=== PATIENT | female | born 1995 | race African-American/Black ===

== ENCOUNTER 2022-11-10 07:06 | Inpatient (IN) | payer MEDICAID ==
[2022-11-09] MEDS: MAGNESIUM/ALUMINUM HYDROXIDE/SIMETHICONE 30ML UDC PO SCH (21:00)
[~2022-11-10] VITALS: Ht 170.2 cm; Wt 86.2 kg
[2022-11-10] MEDS ORDERED: OXYTOCIN 10 UNITS/ML 1ML ONE (08:02)
[2022-11-10] MEDS ORDERED: LIDOCAINE HCL/PF 1% 10 MG/ML 5ML VIAL ONE (08:11)
[2022-11-10] MEDS ORDERED: BUTORPHANOL TARTRATE 2 MG/ML VIAL IM PRN (09:30)
[2022-11-10] MEDS ORDERED: RHO(D) IMMUNE GLOBULIN 300 MCG/SYR IM ONE (10:00)
[2022-11-10] MEDS ORDERED: BISACODYL 10MG SUPP PR PRN (10:00)
[2022-11-10] MEDS ORDERED: BENZOCAINE/LANOLIN/ALOE VERA SPRAY TOP PRN (10:00)
[2022-11-10] MEDS ORDERED: NALOXONE HCL 0.4MG/ML VIAL IV PRN (10:00)
[2022-11-10] MEDS ORDERED: IBUPROFEN 400MG TABLET PO PRN (10:00)
[2022-11-10] MEDS ORDERED: DIPHENHYDRAMINE 25MG CAPSULE PO PRN (10:00)
[2022-11-10] MEDS ORDERED: RHO(D) IMMUNE GLOBULIN 300 MCG/SYR IM PRN (10:00)
[2022-11-10] MEDS ORDERED: OXYTOCIN 30 UNITS/500ML NS PMX 500 ML IV SCH (10:00)
[2022-11-10] MEDS ORDERED: ACETAMINOPHEN WITH CODEINE 300/30MG TABLET PO PRN (10:00)
[2022-11-10] MEDS ORDERED: DEXT 5%/LACTATED RINGERS 1,000 ML IV SCH (10:00)
[2022-11-10] MEDS ORDERED: GLYCERIN/WITCH HAZEL LEAF MEDICATED PAD TOP PRN (10:00)
[2022-11-10] MEDS ORDERED: HEMORRHOIDAL SUPP PR PRN (10:00)
[2022-11-10] MEDS ORDERED: LANOLIN OINT 7GM TUBE TOP PRN (10:00)
[2022-11-10] MEDS ORDERED: LIDOCAINE HCL 1% 20ML VIAL (Pyxis) INJ INFIL SCH (10:00)
[2022-11-10 10:07] LABS: CLARITY URINE CLEAR (CLEAR); COLOR URINE YELLOW (YELLOW); KETONES URINE 2+ (NEGATIVE); LEUKOCYTE ESTERASE URINE NEGATIVE (NEGATIVE); NITRITE URINE NEGATIVE (NEGATIVE); OCCULT BLOOD URINE NEGATIVE (NEGATIVE); PROTEIN URINE 1+ (NEGATIVE); SPECIFIC GRAVITY URINE 1.023 (1.005-1.030); UROBILINOGEN URINE 0.2 E.U./dL (0.2-1.0)
[2022-11-10] MEDS ORDERED: DIATR MEGLU/DIATRIZOATE SOLN 30ML PO SCH (11:00)
[2022-11-10 12:07] LABS: *AMPHETAMINES SCREEN URINE NEGATIVE (NEGATIVE); *BARBITURATES SCREEN URINE NEGATIVE (NEGATIVE); *BENZODIAZEPINES SCREEN URINE NEGATIVE (NEGATIVE); *COCAINE SCREEN URINE NEGATIVE (NEGATIVE); METHADONE URINE SCREEN NEGATIVE (NEGATIVE); OPIATES URINE SCREEN NEGATIVE (NEGATIVE); PHENCYCLIDINE URINE SCREEN NEGATIVE (NEGATIVE)
[2022-11-10 12:22] LABS: CANNABINOID URINE SCREEN PRESUMTIVE POSITIVE (NEGATIVE)
[2022-11-10 12:40] VITALS: BP 130/76
[2022-11-10 16:00] VITALS: BP 127/74
[2022-11-10 16:55] LABS: PARTIAL THROMBOPLASTIN TIME 28.6 sec (23.4-31.0); PROTHROMBIN TIME 10.3 sec (9.6-11.0)
[2022-11-10 16:59] LABS: BASOPHILS % 0.3 % (0.0-2.0); HEMATOCRIT. 25.2 % (36.0-48.0); HEMOGLOBIN. 7.6 g/dL (12.0-16.0); LYMPHOCYTES % 8.6 % (20.0-50.0); MEAN CORPUSCULAR HEMOGLOBIN 19.8 pg (28.0-32.0); MEAN CORPUSCULAR VOLUME 65.8 fL (81.0-99.0); MEAN PLATELET VOLUME 10.7 fl (7.4-10.4); MONOCYTES % 7.8 % (2.0-8.0); NEUTROPHILS % 83.3 % (40.0-76.0); PLATELET 189 x1000/uL (130-400); RED BLOOD CELL COUNT 3.83 mill/uL (4.2-5.4); RED CELL DISTRIBUTION WIDTH 18.2 % (11.6-14.6)
[2022-11-10] MEDS ORDERED: CEFAZOLIN 2,000 MG in DEXT 5% WATER 100 ML IV NR (17:30)
[2022-11-10] MEDS: MAGNESIUM/ALUMINUM HYDROXIDE/SIMETHICONE 30ML UDC PO SCH (17:30)
[2022-11-10 17:46] LABS: PLATELET ESTIMATE NORMAL
[2022-11-10] MEDS: SIMETHICONE 80MG TABLET CHEW PO SCH ×2 (18:00→22:16)
[2022-11-10] MEDS ORDERED: GADOTERATE MEGLUMINE 5 MMOL/10 ML VIAL IV ONE (19:39)
[2022-11-10 20:00] VITALS: BP 128/73
[2022-11-10] MEDS: DOCUSATE SODIUM 100MG CAPSULE PO SCH (22:16)
[2022-11-10] MEDS: IBUPROFEN 800MG TABLET PO PRN (22:21)
[2022-11-11] MEDS ORDERED: CEFAZOLIN 1000MG PREMIX 50 ML IV SCH (01:00)
[2022-11-11 01:30] LABS: MEAN CORPUSCULAR HEMOGLOBIN 19.9 pg (28.0-32.0); MEAN CORPUSCULAR VOLUME 65.2 fL (81.0-99.0); PLATELET 148 x1000/uL (130-400); RED BLOOD CELL COUNT 2.98 mill/uL (4.2-5.4); RED CELL DISTRIBUTION WIDTH 18.4 % (11.6-14.6)
[2022-11-11 01:31] VITALS: BP 101/57
[2022-11-11 01:39] LABS: HEMATOCRIT 19.4 % (36.0-48.0); HEMOGLOBIN 5.9 g/dL (12.0-16.0)
[2022-11-11 05:42] VITALS: BP 119/73
[2022-11-11 07:30] VITALS: BP 112/69
[2022-11-11 07:46] LABS: BASOPHILS % 0.2 % (0.0-2.0); EOSINOPHILS % 0.1 % (0.0-5.0); HEMATOCRIT. 22.8 % (36.0-48.0); LYMPHOCYTES % 15.9 % (20.0-50.0); MEAN PLATELET VOLUME 10.4 fl (7.4-10.4); MONOCYTES % 9.2 % (2.0-8.0); NEUTROPHILS % 74.6 % (40.0-76.0); PLATELET 186 x1000/uL (130-400); RED BLOOD CELL COUNT 3.45 mill/uL (4.2-5.4); RED CELL DISTRIBUTION WIDTH 18.8 % (11.6-14.6)
[2022-11-11 07:50] LABS: HEMOGLOBIN. 6.9 g/dL (12.0-16.0)
[2022-11-11] MEDS: IBUPROFEN 800MG TABLET PO PRN ×2 (08:55→17:39)
[2022-11-11] MEDS: FERROUS SULFATE 325MG TABLET PO SCH ×3 (08:55→17:40)
[2022-11-11] MEDS: MAGNESIUM/ALUMINUM HYDROXIDE/SIMETHICONE 30ML UDC PO SCH ×4 (08:55→21:24)
[2022-11-11] MEDS: PRENATAL VIT/FE FUMARATE/FA TABLET PO SCH (08:55)
[2022-11-11] MEDS: SIMETHICONE 80MG TABLET CHEW PO SCH ×4 (08:55→21:24)
[2022-11-11 09:17] LABS: MEAN CORPUSCULAR HEMOGLOBIN 19.8 pg (28.0-32.0); MEAN CORPUSCULAR VOLUME 66.3 fL (81.0-99.0); PLATELET 166 x1000/uL (130-400); RED BLOOD CELL COUNT 3.03 mill/uL (4.2-5.4); RED CELL DISTRIBUTION WIDTH 18.6 % (11.6-14.6)
[2022-11-11 09:27] LABS: HEMATOCRIT 20.1 % (36.0-48.0)
[2022-11-11 16:00] VITALS: BP 125/70
[2022-11-11 20:00] VITALS: BP 111/68
[2022-11-11] MEDS: DOCUSATE SODIUM 100MG CAPSULE PO SCH (21:24)
[2022-11-12 04:00] VITALS: BP 116/71
[2022-11-12] MEDS: MAGNESIUM/ALUMINUM HYDROXIDE/SIMETHICONE 30ML UDC PO SCH (07:30)
[2022-11-12 08:00] VITALS: BP 117/63
[2022-11-12] MEDS: SIMETHICONE 80MG TABLET CHEW PO SCH (08:00)
[2022-11-12 09:07] LABS: HIV SCREEN 4G Non Reactive (Non Reactive)
[2022-11-12] MEDS: FERROUS SULFATE 325MG TABLET PO SCH (10:05)
[2022-11-12] MEDS: PRENATAL VIT/FE FUMARATE/FA TABLET PO SCH (10:05)
== END 2022-11-12 15:20 | disposition home or self-care (01) | DRG 560 ==
LOC: 8 EST LDRP 07:06 → OBSVTOIN 09:21 → 8EST 12:00
PROVIDERS: ADMIT Obstetrics & Gynecology; ATTEND Obstetrics & Gynecology
PROC: 0KQM0ZZ Repair Perineum Muscle, Open Approach (ICD-10-PCS; principal; 2022-11-10)
PROC: 10E0XZZ Delivery of Products of Conception, External Approach (ICD-10-PCS; 2022-11-10)
DX: O34.219 Maternal care for unspecified type scar from previous cesarean delivery (principal); Z37.0 Single live birth; N85.8 Other specified noninflammatory disorders of uterus; O70.1 Second degree perineal laceration during delivery; O71.7 Obstetric hematoma of pelvis; O90.81 Anemia of the puerperium; Z20.822 Contact with and (suspected) exposure to COVID-19
CPT/HCPCS: 36415; 72197; 74176; 76856; 80305; 80349; 81003; 85025; 85027; 86592; 86762; 86850; 86900; 86920; 87340; 87389; 87426; 99281; A9577; G0378; J0595; J0690; J3490; J7060; J7121; Q9963; J2590